=== PATIENT | female | born 1995 | race African-American/Black ===

== ENCOUNTER → 2017-04-15 | Emergency (ER) | payer OTHER ==
[~2017-04-15] MED LIST: ACETAMINOPHEN 325 MG TABLET (FP) ONE; ACETAMINOPHEN 325 MG TABLET (FP) PO ONE; ONDANSETRON 4 MG/2 ML VIAL IVPB ONE; SODIUM CHLORIDE 1,000 ML IV STA
[2017-04-15 01:37] VITALS: TEMP 98.7; BMI 16.6
[2017-04-15 01:40] LABS: BASOPHIL 1.1 % (0-2.0); EOSINOPHIL 2.1 % (0-4.5); MCH 25.6 pg (25.7-33.7); MCHC 31.9 g/dl (32.0-36.0); MEAN CELL VOLUME 80.2 fl (80-96); MEAN PLT VOLUME 8.5 fl (7.5-11.1); PLATELET COUNT 250 K/MM3 (134-434); RDW 14.4 % (11.6-15.6)
[2017-04-15 02:04] LABS: ALBUMIN 4.1 g/dl (3.4-5.0); ANION GAP 14 (8-16); BILIRUBIN,TOTAL 0.4 mg/dL (0.2-1.0); CALCIUM 9.1 mg/dL (8.5-10.1); CO2 22 mmol/L (21-32); CREATININE 0.9 mg/dL (0.55-1.02); GLUCOSE,RANDOM 110 mg/dL (74-106); SGOT/AST 35 U/L (15-37); SGPT/ALT 45 U/L (12-78)
[2017-04-15 02:05] LABS: ALK PHOS 59 U/L (45-117); TOT PROT 7.8 g/dl (6.4-8.2)
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
[2017-04-15 03:39] VITALS: BP 116/82; PULSE 85
--- NOTE | 2017-04-15 12:34 | EKG ---
Test Reason : Blood Pressure : / mmHG Vent. Rate : 105 BPM Atrial Rate : 105 BPM P-R Int : 164 ms QRS Dur : 076 ms QT Int : 340 ms P-R-T Axes : 069 081 048 degrees QTc Int : 449 ms SINUS TACHYCARDIA OTHERWISE NORMAL ECG NO PREVIOUS ECGS AVAILABLE Confirmed by WOODY BURGESS MD ([id number]) on 04/15/2017 12:34:07 PM Referred By: Confirmed By:WOODY BURGESS MD
== END | disposition home or self-care (01) ==
LOC: JER 01:17 → EDBD 01:17
PROC: 3E0337Z Introduction of Electrolytic and Water Balance Substance into Peripheral Vein, Percutaneous Approach (ICD-10-PCS; principal; 2017-04-15)
PROC: 3E033GC Introduction of Other Therapeutic Substance into Peripheral Vein, Percutaneous Approach (ICD-10-PCS; 2017-04-15)
DX: F10.120 Alcohol abuse with intoxication, uncomplicated (principal); Y90.7 Blood alcohol level of 200-239 mg/100 ml
CPT/HCPCS: 36415; 80053; 80307; 81003; 84703; 85025; 93005; 93010; 96361; 96374; 99282-25